=== PATIENT | female | born 1960 | race African-American/Black ===

== ENCOUNTER 2022-08-28 00:21 | Emergency (ER) | payer SELFPAY ==
[2022-08-28 00:26] VITALS: O2SAT 100
== END 2022-08-28 00:38 | disposition home or self-care (01) ==
LOC: ER 00:30
DX: K94.23 Gastrostomy malfunction (principal)
CPT/HCPCS: 99283

== ENCOUNTER 2022-08-28 17:57 | Emergency (ER) | payer SELFPAY ==
[~2022-08-28] VITALS: Ht 152.4 cm; Wt 45.4 kg
[2022-08-28 18:00] VITALS: O2SAT 95
== END 2022-08-28 18:25 | disposition home or self-care (01) ==
LOC: ER 18:11
DX: K94.23 Gastrostomy malfunction (principal); E11.9 Type 2 diabetes mellitus without complications; D64.9 Anemia, unspecified; F32.A Depression, unspecified
CPT/HCPCS: 99283